=== PATIENT | male | born 1945 | race Caucasian/White ===

== ENCOUNTER 2017-07-28 06:49 | Emergency (ER) | payer OTHER ==
[2017-07-28] MEDS ORDERED: Sodium Chloride 0.9% 2.5 ML Syringe FLUSH PRN (06:56)
[2017-07-28] MEDS ORDERED: Sodium Chloride 0.9% 10 ML Syringe FLUSH PRN (06:56)
[2017-07-28] MEDS ORDERED: Nitroglycerin 2% Oint 1 GM UD Packet TOP ONE (06:56)
[2017-07-28] MEDS ORDERED: Aspirin 81 MG Tab.Chew PO ONE (06:56)
[2017-07-28] MEDS ORDERED: Sodium Chloride 0.9% 1,000 ML IV SCH (07:00)
--- NOTE | 2017-07-28 07:00 | EDM.PDOC ---
ED HPI GENERAL MEDICAL PROBLEM - General Chief Complaint: Chest Pain Stated Complaint: CHEST PAIN Time Seen by Provider: 07/28/17 06:52 - History of Present Illness INITIAL COMMENTS - FREE TEXT/NARRATIVE: HISTORY AND PHYSICAL: History of present illness: Patient's a 71-year-old white male history coronary artery disease including coronary artery bypass graft 1988, patient presents today with chest pain at 32 yesterday was somewhat off and on he took nitroglycerin without complete relief prior to arrival for an episode started approximately 3 AM he states he had some less significant episodes yesterday around noon. He did not take nitroglycerin at that time for those episodes. He denies associated shortness breath palpitations diaphoresis nausea or vomiting Review of systems: As per history of present illness and below otherwise all systems reviewed and negative. Past medical history: As per history of present illness and as reviewed below otherwise noncontributory. Surgical history: As per history of present illness and as reviewed below otherwise noncontributory. Social history: No reported history of drug or alcohol abuse. Family history: As per history of present illness and as reviewed below otherwise noncontributory. Physical exam: HEENT: Atraumatic, normocephalic, pupils reactive, negative for conjunctival pallor or scleral icterus, mucous membranes moist, throat clear, neck supple, nontender, trachea midline. Lungs: Clear to auscultation, breath sounds equal bilaterally, chest nontender. Heart: S1S2, regular, negative for clicks, rubs, or JVD. Abdomen: Soft, nondistended, nontender. Negative for masses or hepatosplenomegaly. Negative for costovertebral tenderness. Pelvis: Stable nontender. Genitourinary: Deferred. Rectal: Deferred. Extremities: Atraumatic, negative for cords or calf pain. Neurovascular unremarkable. Neuro: Awake, alert, oriented. Cranial nerves II through XII unremarkable. Cerebellum unremarkable. Motor and sensory unremarkable throughout. Exam nonfocal. Diagnostics: CBC CMP PT/INR troponin chest x-ray EKG Therapeutics: IV O2 monitor aspirin 324 mg by mouth nitroglycerin paste 1 inch to chest wall Impression: #1 chest pain #2 history coronary artery disease Definitive disposition and diagnosis as appropriate pending reevaluation and review of above. - Related Data Allergies Allergy/AdvReac Type Severity Reaction Status Date / Time No Known Allergies Allergy Verified 07/28/17 06:52 Home Meds: Home Meds Levothyroxine Sodium [Tirosint] 15 mcg PO DAILY 07/05/15 [History] Losartan [Cozaar] 12.5 mg PO DAILY 07/05/15 [History] Ranitidine [Zantac] 150 mg PO BID 07/05/15 [History] Allopurinol [Zyloprim] 100 mg PO DAILY 07/28/17 [History] Aspirin 1 tab PO DAILY 07/28/17 [History] Cholecalciferol (Vitamin D3) [D3-2000] 400 intnl unit PO DAILY 07/28/17 [History ] Cyanocobalamin (Vitamin B-12) [B-12] 1,000 mcg PO DAILY 07/28/17 [History] Hydrocodone/Acetaminophen [Hydrocodon-Acetaminophn 10-325] 1 each PO TID [History] Multivitamin [Multi-Vitamin Daily] 1 tab PO DAILY 07/28/17 [History] Simvastatin [Zocor] 80 mg PO BEDTIME 07/28/17 [History] Vitamin E (Dl,Tocopheryl Acet) [E-200] 400 intnl unit PO DAILY 07/28/17 [History ] Social & Family History - Tobacco Use Smoking Status *Q: Former Smoker - Alcohol Use Days Per Week of Alcohol Use: 3 Number of Drinks Per Day: 4 Total Drinks Per Week: 12 - Recreational Drug Use Recreational Drug Use: No ED ROS GENERAL - Review of Systems Review Of Systems: ROS reveals no pertinent complaints other than HPI. ED EXAM, GENERAL - Physical Exam Exam: See Below (See dictation) Course - Vital Signs Last Recorded V/S: Last Vital Signs Temp 36.1 C 07/28/17 06:52 Pulse 88 07/28/17 06:52 Resp 20 07/28/17 06:52 BP 130/68 07/28/17 06:52 Pulse Ox 98 07/28/17 06:52 - Orders/Labs/Meds Orders: Active Orders 24 hr Category Date Time Status Blood Glucose Check, Bedside [RC] ONETIME Care 07/28/17 06:55 Active Cardiac Monitoring [RC] . DIRECTED Care 07/28/17 06:55 Active EKG 12 Lead [EKG Documentation Completion] [RC] STAT Care 07/28/17 06:46 Active EKG Documentation Completion [RC] STAT Care 07/28/17 06:55 Inactive Oxygen Therapy, ED [RC] ASDIRECTED Care 07/28/17 06:55 Active Pulse Oximetry [RC] ASDIRECTED Care 07/28/17 06:55 Active Chest 1V Frontal [CR] Stat Exams 07/28/17 06:56 Taken Sodium Chloride 0.9% [Normal Saline] 1,000 ml Med 07/28/17 07:00 Active IV STAT Sodium Chloride 0.9% [Saline Flush] Med 07/28/17 06:56 Active 10 ml FLUSH ASDIRECTED PRN Sodium Chloride 0.9% [Saline Flush] Med 07/28/17 06:56 Active 2.5 ml FLUSH ASDIRECTED PRN Saline Lock Insert [OM.PC] Stat Oth 07/28/17 06:55 Ordered Medication Orders Sodium Chloride (Normal Saline) 1,000 mls @ 125 mls/hr IV STAT RAY Last Admin: 07/28/17 07:32 Dose: 125 mls/hr Sodium Chloride (Saline Flush) 10 ml FLUSH ASDIRECTED PRN PRN Reason: Keep Vein Open Sodium Chloride (Saline Flush) 2.5 ml FLUSH ASDIRECTED PRN PRN Reason: Keep Vein Open Labs: Laboratory Tests 07/28/17 07/28/17 07/28/17 Range/Units 06:53 06:53 06:53 WBC 11.91 H (4.0-11.0) K/uL RBC 4.87 (4.50-5.90) M/uL Hgb 15.6 (13.0-17.0) g/dL Hct 45.9 (38.0-50.0) % MCV 94.3 (80.0-98.0) fL MCH 32.0 (27.0-32.0) pg MCHC 34.0 (31.0-37.0) g/dL RDW Std Deviation 49.1 (28.0-62.0) fl RDW Coeff of Constance 14 (11.0-15.0) % Plt Count 185 (150-400) K/uL MPV 11.40 (7.40-12.00) fL Neut % (Auto) 63.0 (48.0-80.0) % Lymph % (Auto) 27.0 (16.0-40.0) % [place] % (Auto) 7.7 (0.0-15.0) % Eos % (Auto) 1.8 (0.0-7.0) % Baso % (Auto) 0.5 (0.0-1.5) % Neut # (Auto) 7.5 H (1.4-5.7) K/uL Lymph # (Auto) 3.2 H (0.6-2.4) K/uL [place] # (Auto) 0.9 H (0.0-0.8) K/uL Eos # (Auto) 0.2 (0.0-0.7) K/uL Baso # (Auto) 0.1 (0.0-0.1) K/uL Nucleated RBC % 0.0 /100WBC Nucleated RBCs # 0 K/uL INR 1.17 H (0.86-1.11) Sodium 138 (136-146) mmol/L Potassium 4.7 (3.5-5.1) mmol/L Chloride 106 (98-110) mmol/L Carbon Dioxide 20 L (21-31) mmol/L BUN 20 (6.0-23.0) mg/dL Creatinine 1.2 (0.6-1.5) mg/dL Est Cr Clr Drug Dosing 56.21 mL/min Estimated GFR (MDRD) > 60.0 ml/min Glucose 105 (60-110) mg/dL Calcium 9.4 (8.8-10.8) mg/dL Total Bilirubin 1.3 (0.1-1.5) mg/dL AST 45 H (5-40) IU/L ALT 35 (8-54) IU/L Alkaline Phosphatase 112 (40-150) Troponin I 3.53 H* (0.0-0.29) NG/ML Total Protein 7.8 (6.0-8.0) g/dL Albumin 4.0 (3.4-4.8) g/dL Globulin 3.8 H (2.0-3.5) g/dL Albumin/Globulin Ratio 1.1 L (1.3-2.8) Meds: Medications Generic Name Dose Route Start Last Admin Trade Name Freq PRN Reason Stop Dose Admin Sodium Chloride 1,000 mls @ 125 mls/hr 07/28/17 07:00 07/28/17 07:32 Normal Saline IV 125 mls/hr STAT RAY Administration Sodium Chloride 10 ml 07/28/17 06:56 Saline Flush FLUSH ASDIRECTED PRN Keep Vein Open Sodium Chloride 2.5 ml 07/28/17 06:56 Saline Flush FLUSH ASDIRECTED PRN Keep Vein Open Discontinued Medications Generic Name Dose Route Start Last Admin Trade Name Freq PRN Reason Stop Dose Admin Aspirin 324 mg 07/28/17 06:56 Aspirin PO 07/28/17 06:57 ONETIME ONE Nitroglycerin 1 gm 07/28/17 06:56 Nitro-Bid 2% TOP 07/28/17 06:57 ONETIME ONE Departure - Departure Time of Disposition: 06:59 Disposition: DC/Tfer to Acute Hospital 02 Condition: Serious Clinical Impression: Acute coronary syndrome - Discharge Information Forms: ED Department Discharge - My Orders Last 24 Hours: My Active Orders 07/28/17 06:46 EKG 12 Lead [EKG Documentation Completion] [RC] STAT 07/28/17 06:55 Blood Glucose Check, Bedside [RC] ONETIME Cardiac Monitoring [RC] . DIRECTED EKG Documentation Completion [RC] STAT Oxygen Therapy, ED [RC] ASDIRECTED Pulse Oximetry [RC] ASDIRECTED Saline Lock Insert [OM.PC] Stat 07/28/17 06:56 Chest 1V Frontal [CR] Stat Sodium Chloride 0.9% [Saline Flush] 10 ml FLUSH ASDIRECTED PRN Sodium Chloride 0.9% [Saline Flush] 2.5 ml FLUSH ASDIRECTED PRN 07/28/17 07:00 Sodium Chloride 0.9% [Normal Saline] 1,000 ml IV STAT - Assessment/Plan Last 24 Hours: My Active Orders 07/28/17 06:46 EKG 12 Lead [EKG Documentation Completion] [RC] STAT 07/28/17 06:55 Blood Glucose Check, Bedside [RC] ONETIME Cardiac Monitoring [RC] . DIRECTED EKG Documentation Completion [RC] STAT Oxygen Therapy, ED [RC] ASDIRECTED Pulse Oximetry [RC] ASDIRECTED Saline Lock Insert [OM.PC] Stat 07/28/17 06:56 Chest 1V Frontal [CR] Stat Sodium Chloride 0.9% [Saline Flush] 10 ml FLUSH ASDIRECTED PRN Sodium Chloride 0.9% [Saline Flush] 2.5 ml FLUSH ASDIRECTED PRN 07/28/17 07:00 Sodium Chloride 0.9% [Normal Saline] 1,000 ml IV STAT
[2017-07-28 07:20] LABS: CHLORIDE,CL 106 mmol/L (98-110); SODIUM,NA 138 mmol/L (136-146)
[2017-07-28] MEDS ORDERED: Ondansetron 4 MG/2 ML SDV IVPUSH ONE (08:04)
[2017-07-28 08:19] VITALS: BP 106/71
--- NOTE | 2017-07-29 11:59 | CR ---
EXAM DATE: 07/28/17 PATIENT'S AGE: 71 Patient: ELIZABETH HART Facility: [place], [place] Site . Site : 1945 Study: XRay Chest [id number]/23/[id number] 7:01:38 AM Ordering Physician: Heidi Mao Final Report: Indication: Chest pain, shortness of breath Technique: Chest 1 view Comparison: None Findings/Impression: There is cardiomegaly and/or a pericardial effusion. There are postoperative changes of a median sternotomy. Mild pulmonary vascular congestion. No focal consolidation, effusion, or pneumothorax. No acute osseous abnormality. Dictated by Nubia Vora MD @ Jul 28 2017 7:17AM (Electronic Signature) Report Signed by Proxy. [facility]
== END 2017-07-28 08:31 ==
LOC: MW.ED 06:49
DX: I24.9 Acute ischemic heart disease, unspecified (principal); I25.10 Atherosclerotic heart disease of native coronary artery without angina pectoris; Z87.891 Personal history of nicotine dependence; Z79.82 Long term (current) use of aspirin; Z79.899 Other long term (current) drug therapy; Z95.1 Presence of aortocoronary bypass graft
CPT/HCPCS: 36415; 71010; 80053; 82962; 84484; 85025; 85610; 93005; 96361; 96374; 99285; A9270; J2405; J7040; 99283

== ENCOUNTER 2017-09-28 18:02 | Emergency (ER) | payer OTHER, MEDICARE ==
[2017-09-28] MEDS ORDERED: Aspirin 325 MG Tab PO ONE (18:14)
[2017-09-28] MEDS ORDERED: Sodium Chloride 0.9% 10 ML Syringe FLUSH PRN (18:14)
[2017-09-28] MEDS ORDERED: Sodium Chloride 0.9% 2.5 ML Syringe FLUSH PRN (18:14)
[2017-09-28] MEDS ORDERED: Sodium Chloride 0.9% 1,000 ML IV SCH (18:15)
--- NOTE | 2017-09-28 18:19 | EDM.PDOC ---
<Mayco Gordon J - Last Filed: 09/28/17 18:24> ED HPI GENERAL MEDICAL PROBLEM - General Chief Complaint: Respiratory Problem Stated Complaint: CHEST PAIN Time Seen by Provider: 09/28/17 18:07 - History of Present Illness INITIAL COMMENTS - FREE TEXT/NARRATIVE: HISTORY AND PHYSICAL: History of present illness: Patient 71-year-old male history of coronary artery disease was had prior MD and presents with a concern of shortness of breath he states has been present off and on for several months he states today it was somewhat worse and with his prior MD that it was essentially without pain only associated with shortness of breath patient is extremely poor historian. Patient denies palpitations diaphoresis nausea or vomiting Review of systems: As per history of present illness and below otherwise all systems reviewed and negative. Past medical history: As per history of present illness and as reviewed below otherwise noncontributory. Surgical history: As per history of present illness and as reviewed below otherwise noncontributory. Social history: No reported history of drug or alcohol abuse. Family history: As per history of present illness and as reviewed below otherwise noncontributory. Physical exam: HEENT: Atraumatic, normocephalic, pupils reactive, negative for conjunctival pallor or scleral icterus, mucous membranes moist, throat clear, neck supple, nontender, trachea midline. Lungs: Clear to auscultation, breath sounds equal bilaterally, chest nontender. Heart: S1S2, regular, negative for clicks, rubs, or JVD. Abdomen: Soft, nondistended, nontender. Negative for masses or hepatosplenomegaly. Negative for costovertebral tenderness. Pelvis: Stable nontender. Genitourinary: Deferred. Rectal: Deferred. Extremities: Atraumatic, negative for cords or calf pain. Neurovascular unremarkable. Neuro: Awake, alert, oriented. Cranial nerves II through XII unremarkable. Cerebellum unremarkable. Motor and sensory unremarkable throughout. Exam nonfocal. Diagnostics: CBC CMP PT/INR troponin BNP chest x-ray EKG Therapeutics: IV O2 monitor aspirin 324 Impression: #1 dyspnea #2 history of coronary artery disease with MD Definitive disposition and diagnosis as appropriate pending reevaluation and review of above. - Related Data Allergies Allergy/AdvReac Type Severity Reaction Status Date / Time No Known Allergies Allergy Verified 09/28/17 18:08 Home Meds: Home Meds Levothyroxine Sodium [Tirosint] 7.5 mcg PO DAILY 07/05/15 [History] Losartan [Cozaar] 12.5 mg PO DAILY 07/05/15 [History] Ranitidine [Zantac] 150 mg PO BID 07/05/15 [History] Allopurinol [Zyloprim] 100 mg PO DAILY 07/28/17 [History] Aspirin 1 tab PO DAILY 07/28/17 [History] Cholecalciferol (Vitamin D3) [D3-2000] 400 intnl unit PO DAILY 07/28/17 [History ] Cyanocobalamin (Vitamin B-12) [B-12] 1,000 mcg PO DAILY 07/28/17 [History] Hydrocodone/Acetaminophen [Hydrocodon-Acetaminophn 10-325] 1 each PO TID [History] Multivitamin [Multi-Vitamin Daily] 1 tab PO DAILY 07/28/17 [History] Simvastatin [Zocor] 40 mg PO BEDTIME 07/28/17 [History] Vitamin E (Dl,Tocopheryl Acet) [E-200] 400 intnl unit PO DAILY 07/28/17 [History ] Past Medical History HEENT History: Reports: None Cardiovascular History: Reports: Bypass, High Cholesterol, Hypertension, MD, Other (See Below) Other Cardiovascular History: Heart Attack Respiratory History: Reports: None Gastrointestinal History: Reports: None Genitourinary History: Reports: None Musculoskeletal History: Reports: None, Back Pain, Chronic, Gout Neurological History: Reports: None Psychiatric History: Reports: None Endocrine/Metabolic History: Reports: Hyperthyroidism Hematologic History: Reports: None Immunologic History: Reports: None Oncologic (Cancer) History: Reports: None Dermatologic History: Reports: None - Infectious Disease History Infectious Disease History: Reports: Chicken Pox, Measles - Past Surgical History Head Surgeries/Procedures: Reports: None HEENT Surgical History: Reports: Oral Surgery Cardiovascular Surgical History: Reports: Coronary Artery Bypass Respiratory Surgical History: Reports: None GI Surgical History: Reports: None Male Surgical History: Reports: None Musculoskeletal Surgical History: Reports: None Social & Family History - Family History Family Medical History: Noncontributory - Tobacco Use Smoking Status *Q: Never Smoker Used Tobacco, but Quit: No - Caffeine Use Caffeine Use: Reports: Coffee - Alcohol Use Days Per Week of Alcohol Use: 3 Number of Drinks Per Day: 4 Total Drinks Per Week: 12 - Recreational Drug Use Recreational Drug Use: No ED ROS GENERAL - Review of Systems Review Of Systems: ROS reveals no pertinent complaints other than HPI. ED EXAM, GENERAL - Physical Exam Exam: See Below (See dictation) Course - Vital Signs Last Recorded V/S: Last Vital Signs Temp 98.5 F 09/28/17 18:09 Pulse 88 09/28/17 18:09 Resp 20 09/28/17 18:09 BP 132/95 H 09/28/17 18:09 Pulse Ox 100 09/28/17 18:14 - Orders/Labs/Meds Orders: Active Orders 24 hr Category Date Time Status Cardiac Monitoring [RC] . DIRECTED Care 09/28/17 18:14 Active EKG Documentation Completion [RC] STAT Care 09/28/17 18:14 Active Oxygen Therapy, ED [RC] ASDIRECTED Care 09/28/17 18:14 Active Pulse Oximetry [RC] ASDIRECTED Care 09/28/17 18:14 Active Chest 1V Frontal [CR] Stat Exams 09/28/17 18:14 Taken Sodium Chloride 0.9% [Normal Saline] 1,000 ml Med 09/28/17 18:15 Active IV STAT Sodium Chloride 0.9% [Saline Flush] Med 09/28/17 18:14 Active 10 ml FLUSH ASDIRECTED PRN Sodium Chloride 0.9% [Saline Flush] Med 09/28/17 18:14 Active 2.5 ml FLUSH ASDIRECTED PRN Saline Lock Insert [OM.PC] Stat Oth 09/28/17 18:14 Ordered Medication Orders Sodium Chloride (Normal Saline) 1,000 mls @ 125 mls/hr IV STAT RAY Last Admin: 09/28/17 18:37 Dose: 125 mls/hr Sodium Chloride (Saline Flush) 10 ml FLUSH ASDIRECTED PRN PRN Reason: Keep Vein Open Sodium Chloride (Saline Flush) 2.5 ml FLUSH ASDIRECTED PRN PRN Reason: Keep Vein Open Labs: Laboratory Tests 09/28/17 09/28/17 09/28/17 Range/Units 18:20 18:20 18:20 WBC 11.10 H (4.0-11.0) K/uL RBC 5.05 (4.50-5.90) M/uL Hgb 16.3 (13.0-17.0) g/dL Hct 47.8 (38.0-50.0) % MCV 94.7 (80.0-98.0) fL MCH 32.3 H (27.0-32.0) pg MCHC 34.1 (31.0-37.0) g/dL RDW Std Deviation 53.8 (28.0-62.0) fl RDW Coeff of Constance 16 H (11.0-15.0) % Plt Count 184 (150-400) K/uL MPV 11.30 (7.40-12.00) fL Neut % (Auto) 50.4 (48.0-80.0) % Lymph % (Auto) 40.4 H (16.0-40.0) % [place] % (Auto) 7.0 (0.0-15.0) % Eos % (Auto) 1.6 (0.0-7.0) % Baso % (Auto) 0.6 (0.0-1.5) % Neut # (Auto) 5.6 (1.4-5.7) K/uL Lymph # (Auto) 4.5 H (0.6-2.4) K/uL [place] # (Auto) 0.8 (0.0-0.8) K/uL Eos # (Auto) 0.2 (0.0-0.7) K/uL Baso # (Auto) 0.1 (0.0-0.1) K/uL Nucleated RBC % 0.0 /100WBC Nucleated RBCs # 0 K/uL INR 1.44 Sodium 135 L (136-146) mmol/L Potassium 4.3 (3.5-5.1) mmol/L Chloride 105 (98-110) mmol/L Carbon Dioxide 18 L (21-31) mmol/L BUN 27 H (6.0-23.0) mg/dL Creatinine 1.5 (0.6-1.5) mg/dL Est Cr Clr Drug Dosing 44.97 mL/min Estimated GFR (MDRD) 46.4 ml/min Glucose 151 H (60-110) mg/dL Calcium 9.9 (8.8-10.8) mg/dL Total Bilirubin 2.0 H (0.1-1.5) mg/dL AST 30 (5-40) IU/L ALT 23 (8-54) IU/L Alkaline Phosphatase 133 (40-150) Troponin I < 0.10 (0.0-0.29) NG/ML B-Natriuretic Peptide (<100) PG/ML Total Protein 7.9 (6.0-8.0) g/dL Albumin 4.3 (3.4-4.8) g/dL Globulin 3.6 H (2.0-3.5) g/dL Albumin/Globulin Ratio 1.2 L (1.3-2.8) 09/28/17 Range/Units 18:20 WBC (4.0-11.0) K/uL RBC (4.50-5.90) M/uL Hgb (13.0-17.0) g/dL Hct (38.0-50.0) % MCV (80.0-98.0) fL MCH (27.0-32.0) pg MCHC (31.0-37.0) g/dL RDW Std Deviation (28.0-62.0) fl RDW Coeff of Constance (11.0-15.0) % Plt Count (150-400) K/uL MPV (7.40-12.00) fL Neut % (Auto) (48.0-80.0) % Lymph % (Auto) (16.0-40.0) % [place] % (Auto) (0.0-15.0) % Eos % (Auto) (0.0-7.0) % Baso % (Auto) (0.0-1.5) % Neut # (Auto) (1.4-5.7) K/uL Lymph # (Auto) (0.6-2.4) K/uL [place] # (Auto) (0.0-0.8) K/uL Eos # (Auto) (0.0-0.7) K/uL Baso # (Auto) (0.0-0.1) K/uL Nucleated RBC % /100WBC Nucleated RBCs # K/uL INR Sodium (136-146) mmol/L Potassium (3.5-5.1) mmol/L Chloride (98-110) mmol/L Carbon Dioxide (21-31) mmol/L BUN (6.0-23.0) mg/dL Creatinine (0.6-1.5) mg/dL Est Cr Clr Drug Dosing mL/min Estimated GFR (MDRD) ml/min Glucose (60-110) mg/dL Calcium (8.8-10.8) mg/dL Total Bilirubin (0.1-1.5) mg/dL AST (5-40) IU/L ALT (8-54) IU/L Alkaline Phosphatase (40-150) Troponin I (0.0-0.29) NG/ML B-Natriuretic Peptide 1810 H (<100) PG/ML Total Protein (6.0-8.0) g/dL Albumin (3.4-4.8) g/dL Globulin (2.0-3.5) g/dL Albumin/Globulin Ratio (1.3-2.8) Meds: Medications Generic Name Dose Route Start Last Admin Trade Name Freq PRN Reason Stop Dose Admin Sodium Chloride 1,000 mls @ 125 mls/hr 09/28/17 18:15 09/28/17 18:37 Normal Saline IV 125 mls/hr STAT RAY Administration Sodium Chloride 10 ml 09/28/17 18:14 Saline Flush FLUSH ASDIRECTED PRN Keep Vein Open Sodium Chloride 2.5 ml 09/28/17 18:14 Saline Flush FLUSH ASDIRECTED PRN Keep Vein Open Discontinued Medications Generic Name Dose Route Start Last Admin Trade Name Freq PRN Reason Stop Dose Admin Aspirin 325 mg 09/28/17 18:14 09/28/17 18:36 Aspirin PO 09/28/17 18:15 325 mg ONETIME ONE Administration Departure - Departure Disposition: Home, Self-Care 01 Clinical Impression: CHF (congestive heart failure) - Discharge Information Forms: ED Department Discharge Additional Instructions: The following information is given to patients seen in the emergency department who are being discharged to home. This information is to outline your options for follow-up care. We provide all patients seen in our emergency department with a follow-up referral. The need for follow-up, as well as the timing and circumstances, are variable depending upon the specifics of your emergency department visit. If you don't have a primary care physician on staff, we will provide you with a referral. We always advise you to contact your personal physician following an emergency department visit to inform them of the circumstance of the visit and for follow-up with them and/or the need for any referrals to a consulting specialist. The emergency department will also refer you to a specialist when appropriate. This referral assures that you have the opportunity for follow-up care with a specialist. All of these measure are taken in an effort to provide you with optimal care, which includes your follow-up. Under all circumstances we always encourage you to contact your private physician who remains a resource for coordinating your care. When calling for follow-up care, please make the office aware that this follow-up is from your recent emergency room visit. If for any reason you are refused follow-up, please contact the [facility] emergency department at and asked to speak to the emergency department charge nurse. <Dionisio Cadet - Last Filed: 09/28/17 20:35> ED HPI GENERAL MEDICAL PROBLEM - History of Present Illness INITIAL COMMENTS - FREE TEXT/NARRATIVE: I've seen and examined the patient and agree with the above Patient is in no distress is offered observation admission to follow cardiac enzymes and optimize medical management for CHF he refuses admission at this time Again is in no distress does not appear short of breath no fever nausea vomiting diarrhea constipation chest pain shortness breath headache dizziness or palpitation no bowel or urine symptoms Ambulatory O2 sat as above 95% on room air Gen. no acute distress HEENT grossly within normal limits Chest clear throughout no wheeze or crackle CV regular rate and rhythm Abdomen soft nontender nondistended bowel sounds all 4 quadrants Extremities full range of motion strength 5 out of 5 trace edema [employer] alert nonfocal Lab as below Impression Shortness of breath/dyspnea resolved Elevated BNP peptide 1800 Chronic history of baseline Plan Patient is offered observation admission refuses desiring to return home [facility] I did start the patient on a trial of Lasix 20 mg by mouth daily #30 no refill Strongly advise [facility] with the [facility] for continued management and extended the offered to return if symptoms persist or worsen he is described this plan agrees consents voices understanding Departure - Departure Time of Disposition: 20:35 Condition: Fair
[2017-09-28 18:52] LABS: CHLORIDE,CL 105 mmol/L (98-110); SODIUM,NA 135 mmol/L (136-146)
[2017-09-28 21:02] VITALS: BP 121/81
--- NOTE | 2017-09-29 16:04 | CR ---
EXAM DATE: 09/28/17 PATIENT'S AGE: 71 Patient: ELIZABETH HART Facility: [place], [place] Site . Site : 1945 Study: XRay Chest [id number]/2018 7:31:23 PM Ordering Physician: Heidi Mao Final Report: INDICATIONS: Pain. Shortness of breath. TECHNIQUE: Chest 1 portable view. COMPARISON: Chest radiograph 07/28/2017. FINDINGS: No pneumothorax, pleural effusion or airspace consolidation. No evidence of pulmonary edema. Median sternotomy. Cardiomegaly, unchanged. Mediastinal contours are stable. Upper abdomen and osseous structures show no acute abnormality. IMPRESSION: No evidence of acute cardiopulmonary disease. Cardiomegaly, unchanged. Dictated by Jhonny Elliott MD @ 09/28/2017 7:49:58 PM Dictated by: Jhonny Elliott MD @ 09/28/2017 19:50:12 (Electronic Signature) Report Signed by Proxy. [facility]
== END 2017-09-28 20:43 | disposition home or self-care (01) ==
LOC: MW.ED 18:02
DX: I11.0 Hypertensive heart disease with heart failure (principal); I50.9 Heart failure, unspecified; I25.10 Atherosclerotic heart disease of native coronary artery without angina pectoris; Z95.1 Presence of aortocoronary bypass graft; I25.2 Old myocardial infarction; E78.00 Pure hypercholesterolemia, unspecified; E05.90 Thyrotoxicosis, unspecified without thyrotoxic crisis or storm; Z79.82 Long term (current) use of aspirin; Z79.899 Other long term (current) drug therapy
CPT/HCPCS: 36415; 71045; 80053; 83880; 84484; 85025; 85610; 96360; 96361; 99285; A9270; J7040; 93005; 99284

== ENCOUNTER 2017-12-13 15:17 | Emergency (ER) | payer MEDICARE, OTHER ==
[2017-12-13] MEDS ORDERED: Rocuronium 50 MG/5 ML Vial IVPUSH ONE (15:18)
--- NOTE | 2017-12-13 15:45 | EDM.PDOC ---
ED HPI GENERAL MEDICAL PROBLEM - General Chief Complaint: CPR in Progress Stated Complaint: AMBULANCE Time Seen by Provider: 12/13/17 15:20 - History of Present Illness INITIAL COMMENTS - FREE TEXT/NARRATIVE: Patient 72-year-old white male who presents status post cardiac arrest his was reported to have heard a fall she notify paramedics upon their arrival patient was reportedly asystolic advanced cardiac life support was initiated patient did end up ultimately given 2 rounds of epi and upon arrival here has an unclear perfusing rhythm with a rate in the 40s to 50s systolic blood pressure initially of 80 he maintained a pulse hair Lloyd airway was changed out by myself for 8.5 ET tube breath sounds are equal status post central line was also placed in right femoral vein by myself fluid bolus was initiated. C-collar was applied. Past medical and surgical history unavailable patient is reported to have an extensive cardiac history. HEENT was atraumatic trachea was midline pupils are mid range sluggish on arrival lungs her breath sounds are equal bilaterally and coarse. Abdomen soft protuberant pelvis was stable extremities were unremarkable neurologic the patient remains nonresponsive Green catheter and NG tube were placed I discussed case with Dr. Madrigal at [facility] graciously accepted the patient patient was sent by [email or web address]. Impression #1 status post cardiac arrest - Related Data Allergies Allergy/AdvReac Type Severity Reaction Status Date / Time No Known Allergies Allergy Verified 09/28/17 18:08 Home Meds: Home Meds Levothyroxine Sodium [Tirosint] 7.5 mcg PO DAILY 07/05/15 [History] Losartan [Cozaar] 12.5 mg PO DAILY 07/05/15 [History] Ranitidine [Zantac] 150 mg PO BID 07/05/15 [History] Allopurinol [Zyloprim] 100 mg PO DAILY 07/28/17 [History] Aspirin 1 tab PO DAILY 07/28/17 [History] Cholecalciferol (Vitamin D3) [D3-2000] 400 intnl unit PO DAILY 07/28/17 [History ] Cyanocobalamin (Vitamin B-12) [B-12] 1,000 mcg PO DAILY 07/28/17 [History] Hydrocodone/Acetaminophen [Hydrocodon-Acetaminophn 10-325] 1 each PO TID [History] Multivitamin [Multi-Vitamin Daily] 1 tab PO DAILY 07/28/17 [History] Simvastatin [Zocor] 40 mg PO BEDTIME 07/28/17 [History] Vitamin E (Dl,Tocopheryl Acet) [E-200] 400 intnl unit PO DAILY 07/28/17 [History ] Past Medical History HEENT History: Reports: None Cardiovascular History: Reports: Bypass, High Cholesterol, Hypertension, [place], Other (See Below) Other Cardiovascular History: Heart Attack Respiratory History: Reports: None Gastrointestinal History: Reports: None Genitourinary History: Reports: None Musculoskeletal History: Reports: None, Back Pain, Chronic, Gout Neurological History: Reports: None Psychiatric History: Reports: None Endocrine/Metabolic History: Reports: Hyperthyroidism Hematologic History: Reports: None Immunologic History: Reports: None Oncologic (Cancer) History: Reports: None Dermatologic History: Reports: None - Infectious Disease History Infectious Disease History: Reports: Chicken Pox, Measles - Past Surgical History Head Surgeries/Procedures: Reports: None HEENT Surgical History: Reports: Oral Surgery Cardiovascular Surgical History: Reports: Coronary Artery Bypass Respiratory Surgical History: Reports: None GI Surgical History: Reports: None Male Surgical History: Reports: None Musculoskeletal Surgical History: Reports: None Social & Family History - Family History Family Medical History: Noncontributory - Tobacco Use Smoking Status *Q: Never Smoker Used Tobacco, but Quit: No - Caffeine Use Caffeine Use: Reports: Coffee - Alcohol Use Days Per Week of Alcohol Use: 3 Number of Drinks Per Day: 4 Total Drinks Per Week: 12 - Recreational Drug Use Recreational Drug Use: No ED ROS GENERAL - Review of Systems Review Of Systems: ROS reveals no pertinent complaints other than HPI. ED EXAM, GENERAL - Physical Exam Exam: See Below (See dictation) Course - Orders/Labs/Meds Orders: Active Orders 24 hr Category Date Time Status Cardiac Monitoring [RC] . DIRECTED Care 12/13/17 15:24 Active EKG Documentation Completion [RC] STAT Care 12/13/17 15:24 Active Insert Urinary Catheter [OM.PC] Q24H Care 12/13/17 15:30 Ordered Oxygen Therapy [RC] ASDIRECTED Care 12/13/17 15:24 Active Pulse Oximetry [RC] ASDIRECTED Care 12/13/17 15:24 Active Urinary Catheter Assessment [RC] ASDIRECTED Care 12/13/17 15:27 Active Chest 1V Frontal [CR] Stat Exams 04/10/18 15:24 Taken COMPREHENSIVE METABOLIC PN,CMP [CHEM] Stat Lab 12/13/17 15:15 Received INR,PT,PROTHROMBIN TIME [COAG] Stat Lab 12/13/17 15:15 Received TROPONIN I [CHEM] Stat Lab 12/13/17 15:15 Received UA W/MICROSCOPIC [URIN] Stat Lab 12/13/17 15:24 Ordered NG [Nasogastric Orogastric Tube Insertion] [OM.PC] Stat Oth 12/13/17 15:26 Ordered Labs: Laboratory Tests 12/13/17 Range/Units 15:15 WBC 11.04 H (4.0-11.0) K/uL RBC 4.61 (4.50-5.90) M/uL Hgb 15.3 (13.0-17.0) g/dL Hct 44.4 (38.0-50.0) % MCV 96.3 (80.0-98.0) fL MCH 33.2 H (27.0-32.0) pg MCHC 34.5 (31.0-37.0) g/dL RDW Std Deviation 60.5 (28.0-62.0) fl RDW Coeff of Constance 17 H (11.0-15.0) % Plt Count 119 L (150-400) K/uL MPV 13.40 H (7.40-12.00) fL Neut % (Auto) 27.2 L (48.0-80.0) % Lymph % (Auto) 65.8 H (16.0-40.0) % Smyth % (Auto) 4.8 (0.0-15.0) % Eos % (Auto) 1.7 (0.0-7.0) % Baso % (Auto) 0.5 (0.0-1.5) % Neut # (Auto) 3.0 (1.4-5.7) K/uL Lymph # (Auto) 7.3 H (0.6-2.4) K/uL Smyth # (Auto) 0.5 (0.0-0.8) K/uL Eos # (Auto) 0.2 (0.0-0.7) K/uL Baso # (Auto) 0.1 (0.0-0.1) K/uL Nucleated RBC % 0.5 /100WBC Nucleated RBCs # 0 K/uL Departure - Departure Time of Disposition: 15:44 Disposition: DC/Tfer to Acute Hospital 02 Condition: Critical Clinical Impression: Cardiac arrest - Discharge Information Referrals: PCP,None [Primary Care Provider] - - My Orders Last 24 Hours: My Active Orders 12/13/17 15:15 COMPREHENSIVE METABOLIC PN,CMP [CHEM] Stat INR,PT,PROTHROMBIN TIME [COAG] Stat TROPONIN I [CHEM] Stat 12/13/17 15:24 Cardiac Monitoring [RC] . DIRECTED EKG Documentation Completion [RC] STAT Oxygen Therapy [RC] ASDIRECTED Pulse Oximetry [RC] ASDIRECTED Chest 1V Frontal [CR] Stat UA W/MICROSCOPIC [URIN] Stat 12/13/17 15:26 NG [Nasogastric Orogastric Tube Insertion] [OM.PC] Stat 12/13/17 15:27 Urinary Catheter Assessment [RC] ASDIRECTED 12/13/17 15:30 Insert Urinary Catheter [OM.PC] Q24H - Assessment/Plan Last 24 Hours: My Active Orders 12/13/17 15:15 COMPREHENSIVE METABOLIC PN,CMP [CHEM] Stat INR,PT,PROTHROMBIN TIME [COAG] Stat TROPONIN I [CHEM] Stat 12/13/17 15:24 Cardiac Monitoring [RC] . DIRECTED EKG Documentation Completion [RC] STAT Oxygen Therapy [RC] ASDIRECTED Pulse Oximetry [RC] ASDIRECTED Chest 1V Frontal [CR] Stat UA W/MICROSCOPIC [URIN] Stat 12/13/17 15:26 NG [Nasogastric Orogastric Tube Insertion] [OM.PC] Stat 12/13/17 15:27 Urinary Catheter Assessment [RC] ASDIRECTED 12/13/17 15:30 Insert Urinary Catheter [OM.PC] Q24H
[2017-12-13 15:52] LABS: CHLORIDE,CL 101 mmol/L (98-107); SODIUM,NA 137 mmol/L (136-148)
--- NOTE | 2017-12-13 15:52 | CR ---
EXAMINATION: Portable chest radiograph. HISTORY: Post intubation. FINDINGS: The trachea is midline. There is an endotracheal tube noted with tip in good position 4 cm from the c constanza. An endogastric tube projects into the stomach. The heart is mildly enlarged. Small right pleur al effusion is noted. Median sternotomy wires are present. Mild dependent atelectasis/infiltrate bila terally, right greater than left. Osseous structures appear unremarkable. IMPRESSION: 1. Endotracheal tube in good position. 2. Endogastric tube in good position.. 3. Small right pleural effusion. 4. Mild cardiomegaly.
[2017-12-13] MEDS ORDERED: Sodium Chloride 0.9% 1,000 ML IV ONE (17:00)
[2017-12-13 17:27] VITALS: BP 85/61
== END 2017-12-13 16:17 ==
LOC: MW.ED 15:17
DX: I46.9 Cardiac arrest, cause unspecified (principal); E78.00 Pure hypercholesterolemia, unspecified; I10 Essential (primary) hypertension; I25.2 Old myocardial infarction; E05.90 Thyrotoxicosis, unspecified without thyrotoxic crisis or storm; Z79.899 Other long term (current) drug therapy; Z79.82 Long term (current) use of aspirin
CPT/HCPCS: 36415; 71045; 80053; 84484; 85025; 85610; 99291; J7040; 99285